=== PATIENT | female | born 1960 | race Two or more races ===

== ENCOUNTER 2024-05-15 17:08 | Emergency (ER) | payer OTHER ==
[~2024-05-15] VITALS: Ht 172.7 cm; Wt 86.2 kg
[2024-05-15] MEDS ORDERED: IBUPROFEN 400 MG TABLET ONE (18:28)
[2024-05-15] MEDS: IBUPROFEN 400 MG TABLET PO ONE (18:31)
[2024-05-15 19:11] VITALS: BP 148/88; TEMP 98.5; O2SAT 98
== END 2024-05-15 19:12 | disposition home or self-care (01) ==
LOC: ER 17:17
DX: M54.2 Cervicalgia (principal); R07.81 Pleurodynia; I10 Essential (primary) hypertension
CPT/HCPCS: 71111-TC